=== PATIENT | female | born 1955 | race Caucasian/White ===

== ENCOUNTER 2016-10-26 02:55 | Emergency (ER) | payer OTHER ==
[2016-10-26] MEDS ORDERED: G.I. COCKTAIL PO ONE (03:09)
[2016-10-26 03:28] LABS: MANUAL DIFF NEEDED? NO
--- NOTE | 2016-10-26 03:28 | PROVIDER DOCUMENTATION ---
HPI-Abdominal Pain/GI Problem - General Chief Complaint: Epigastric Pain Stated Complaint: EPIGASTRIC PAIN, BACK PAIN Time Seen by Provider: 10/26/16 03:01 Source: patient (Patient is a 61 year old black female complaining of burning epigastric pain since 1030pm tonight after eating a bowl of chili. Denies shortness of breath or history of heart disease. Patient given a GI cocktail with substantial relief of pain.) Allergies/Adverse Reactions: Patient Allergies Allergy/AdvReac Type Severity Reaction Status Date / Time Sulfa (Sulfonamide AdvReac HIVES Verified 10/26/16 03:16 Antibiotics) - History of Present Illness-ABD Abdominal Pain Onset Location: reports: epigastric Pain Radiation: reports: no radiation Quality of Pain: reports: burning Severity in ED: reports: mild Onset/Duration: reports: 4-6 hours ago Activities at Onset: reports: rest (onset after eating chili) Exposure to sick contacts?: No Associated Symptoms: denies: chest pain, nausea, vomiting Dark Stools Present?: reports: none noticed Bruising or Bleeding Gums?: No Similar Symptoms Previously?: No Recently seen or treated by another doctor?: No Review of Systems - Adult - REVIEW OF SYSTEMS - ADULT Constitutional: denies: chills, fever Eyes: reports: no symptoms reported Ears, Nose, Mouth & Throat: reports: no symptoms reported Cardiovascular: denies: chest pain Respiratory: denies: shortness of breath Gastrointestinal: reports: abdominal pain. denies: nausea, vomiting Musculoskeletal: reports: no symptoms reported Integumentary: reports: no symptoms reported Neurological: reports: no symptoms reported Psychiatric: reports: no symptoms reported Endocrine: reports: no symptoms reported Hematologic/Lymphatic: reports: no symptoms reported Allergic/Immunologic: reports: no symptoms reported All Other Systems: Reviewed and Negative Past History - Adult - PAST MEDICAL HISTORY-ADULT Review of Records: reports: Old Records Reviewed, Nursing Assessment Review, Medications Reviewed, Social history reviewed & non-contributory. Major Childhood Illnesses: reports: denies history Cardiovascular: reports: denies history Respiratory: reports: denies history Gastrointestinal: reports: denies history Genitourinary: reports: denies history Musculoskeletal: reports: denies history Neurological: reports: denies history Endocrine/Immune: reports: denies history Physical Exam-General - PHYSICAL EXAM-ADULT Initial Vital Signs Reviewed: Yes - CONSTITUTIONAL General Appearance: alert, obese, other (nondiaphoretic) - EYES Eyes: other (clear) - HEAD, EARS, NOSE, MOUTH & THROAT HENMT: normocephalic/atraumatic, moist mucous membranes - NECK Neck: supple - RESPIRATORY Respiratory: lungs clear, no pleuratic chest pain, no respiratory distress - CARDIOVASCULAR Cardiovascular: regular rate, rhythm - GASTROINTESTINAL (ABDOMEN) Abdominal Exam: soft, tenderness (epigastric tenderness to palpation). negative : guarding, rebound - GENITOURINARY Female Genitalia/Pelvic Exam: deferred Rectal Exam: deferred - LYMPHATIC Lymphatic: no adenopathy - MUSCULOSKELETAL Back Exam: normal inspection Extremity: normal range of motion - SKIN Integumentary: normal color, normal turgor - NEUROLOGIC Neurologic: grossly normal, no motor/sensory deficits - PSYCHIATRIC Psych/Mental Status: normal mood/affect, normal thought content, normal thought process, oriented x 3 Progress - PLAN OF CARE/RESULTS Progress/Plan/Lab Results: repeat exam at 0450: patient is resting comfortably and "feels great". no pain at this time Laboratory Results - last 24 hr 10/26/16 10/26/16 10/26/16 03:21 03:21 03:21 WBC 9.75 RBC 4.81 Hgb 14.0 Hct 43.2 MCV 89.8 MCH 29.1 MCHC 32.4 L RDW Std Deviation 13.6 Plt Count 207 MPV 11.1 H Immature Gran % (Auto) 0.2 Neut % (Auto) 83.9 H Lymph % (Auto) 13.0 L [place] % (Auto) 1.3 L Eos % (Auto) 1.5 Baso % (Auto) 0.1 Immature Gran # (Auto) 0.02 Neut # (Auto) 8.17 H Lymph # (Auto) 1.27 [place] # (Auto) 0.13 Eos # (Auto) 0.15 Baso # (Auto) 0.01 Sodium 137 Potassium 3.4 L Chloride 99 Carbon Dioxide 24 L Anion Gap 14 BUN 15 Creatinine 0.8 Estimated GFR/1.73 m2 > 60 BUN/Creatinine Ratio 19 Glucose 240 H Calculated Osmolality 283 Calcium 8.5 L Total Bilirubin 1.36 H AST 223 H ALT 65 H Alkaline Phosphatase 127 H Troponin T < 0.010 Total Protein 6.6 Albumin 3.7 Globulin 2.9 Albumin/Globulin Ratio 1.3 Lipase 28 - EKG 1 Time of EKG reading by physician:: 03:01 EKG Read and Signed by:: Adonay Mosley Rate: 71 [place]: normal QRS: normal [place] Interval: normal Prior EKG Comparison: no prior EKG Comments: no STEMI, NSSTW changes - XRAY 1 XRAY Study: Chest, Abdomen, Pelvis XRAY Interpretation: no acute findings, no free air, no obstruction Departure - Departure Time of Disposition Order: 04:55 DIAGNOSIS: Epigastric abdominal pain Disposition: HOME 01 Certified Medical Emergency: Emergent Condition: Stable Additional Instructions: elevate head of bed at night, avoid spicy or greasy foods, followup with primary care doctor if symptoms persist Prescriptions: Lansoprazole [Prevacid] 30 mg PO DAILY #30 capsule. Referrals: None,PCP [Primary Care Provider] -
[2016-10-26 03:34] LABS: BASO% 0.1 % (0.0-0.8); EOS# 0.15 X1000 (0.0-0.7); EOS% 1.5 % (0.0-10.0); HEMATOCRIT 43.2 % (37.0-47.0); IMM GRAN# 0.02 X1000 (0.0-0.04); IMM GRAN% 0.2 % (0.0-0.5); LYMPH# 1.27 X1000 (1.2-3.4); MCH 29.1 PG (27-31); MCHC 32.4 g/dL (33-37); MCV 89.8 FL (81-99); MONO# 0.13 X1000 (0.11-0.59); MONO% 1.3 % (1.7-9.3); MPV 11.1 FL (7.4-10.4); NEUT% 83.9 % (42.2-75.2); PLT 207 X1000 (130-400); RBC 4.81 XMIL (4.2-5.4)
[2016-10-26 03:47] LABS: AGAP 14; ALBUMIN 3.7 g/dL (3.5-5.0); ALKALINE PHOSPHATASE 127 U/L (32-104); BUN 15 mg/dL (8-22); CALCIUM 8.5 mg/dL (8.8-10.2); CHLORIDE 99 mmol/L (98-107); COSMO 283; GOT 223 U/L (10-30); GPT 65 U/L (10-36); LIPASE 28 U/L (13-60); POTASSIUM 3.4 mmol/L (3.5-5.1); SODIUM 137 mmol/L (136-145); TCO2 24 mmol/L (25-35); TOTAL BILIRUBIN 1.36 mg/dL (0.20-1.00); TOTAL PROTEIN 6.6 g/dL (6.3-8.3)
[2016-10-26 04:03] VITALS: BP 122/68
--- NOTE | 2016-10-26 05:30 | EKG Report ---
Test Performed on : 10/26/2016 03:00:53 AM Test Reason : epigastric pain, cp Blood Pressure : / mmHG Vent. Rate : 071 BPM Atrial Rate : 071 BPM P-R Int : 152 ms QRS Dur : 094 ms QT Int : 386 ms P-R-T Axes : 056 016 043 degrees QTc Int : 419 ms Normal sinus rhythm. Nonspecific T wave abnormality Abnormal ECG No previous ECGs available Unconfirmed Result
--- NOTE | 2016-10-26 08:32 | Diag Imaging Result Document ---
PROCEDURE NAME: FLAT/UPRIGHT ABD/1 VIEW CHEST - 10/26/2016 FLAT AND UPRIGHT ABDOMEN: FINDINGS: There are stones in the lower pole of the left kidney. The bowel gas pattern is unremarkable. There is no evidence of organomegaly or mass. There are phleboliths in the pelvis. There is no evidence of organomegaly or mass. IMPRESSION: Left nephrolithiasis.
== END 2016-10-26 05:04 | disposition home or self-care (01) ==
LOC: ED 02:55
DX: R10.13 Epigastric pain (principal); M54.9 Dorsalgia, unspecified; R10.816 Epigastric abdominal tenderness
CPT/HCPCS: 36415; 74022; 80053; 83690; 84484; 85025; 93005; 99283